=== PATIENT | female | born 1980 | race African-American/Black ===

== ENCOUNTER 2020-07-16 15:51 | Outpatient (CLI) | payer OTHER ==
--- NOTE | 2020-07-16 16:37 | RAD ---
Exam: Left first toe 3 views HISTORY: Injury. Pain. FINDINGS: Preserved joint spaces. Possible nondisplaced fracture involving the proximal lateral aspec t of the distal phalanx. No definite intra-articular extension. No additional fractures. IMPRESSION: Fracture, nondisplaced, involving the proximal aspect of the distal phalanx of the first digit. Correlate for point tenderness..
== END 2020-07-16 15:52 | disposition home or self-care (01) ==
LOC: SCSRAD 15:51
PROVIDERS: ATTEND Student in an Organized Health Care Education/Training Program
DX: S99.922A Unspecified injury of left foot, initial encounter (principal); S92.425A Nondisplaced fracture of distal phalanx of left great toe, initial encounter for closed fracture

== ENCOUNTER 2020-11-26 09:11 | Outpatient (CLI) | payer OTHER | END 2020-11-26 09:12 | disposition home or self-care (01) | LOC: BICMAMMO 09:11 | PROVIDERS: ATTEND Student in an Organized Health Care Education/Training Program | DX: Z12.31 Encounter for screening mammogram for malignant neoplasm of breast (principal) | CPT/HCPCS: 77063; 77067 ==

== ENCOUNTER 2024-04-22 15:10 | Outpatient (CLI) | payer BC | END 2024-04-22 15:11 | disposition home or self-care (01) | LOC: ULT 15:10 | PROVIDERS: ATTEND Nurse Practitioner Family | DX: N92.0 Excessive and frequent menstruation with regular cycle (principal); D25.9 Leiomyoma of uterus, unspecified | CPT/HCPCS: 76856 ==